=== PATIENT | female | born 2000 | race Caucasian/White ===

== ENCOUNTER 2023-03-01 03:14 | Emergency (ER) | payer BC, MEDICAID, OTHER ==
[~2023-03-01] VITALS: Ht 175.3 cm; Wt 73.0 kg
[~2023-03-01 03:14] MED LIST: CALAMINE LOTION; HYDR-459; HYDROCORTISONE CREAM; PERMETHRIN CREAM
[2023-03-01 03:24] VITALS: BP 122/70; O2SAT 100
[2023-03-01 03:52] LABS: BASOPHILS % 0.6 % (0.0-2.0); EOSINOPHILS % 0.8 % (0.0-5.0); HEMATOCRIT. 35.5 % (36.0-48.0); HEMOGLOBIN. 12.1 g/dL (12.0-16.0); LYMPHOCYTES % 28.6 % (20.0-50.0); MEAN CORPUSCULAR HEMOGLOBIN 30.8 pg (28.0-32.0); MEAN CORPUSCULAR VOLUME 90.4 fL (81.0-99.0); MEAN PLATELET VOLUME 7.2 fl (7.4-10.4); MONOCYTES % 6.2 % (2.0-8.0); NEUTROPHILS % 63.8 % (40.0-76.0); PLATELET 429 x1000/uL (130-400); RED BLOOD CELL COUNT 3.93 mill/uL (4.2-5.4); RED CELL DISTRIBUTION WIDTH 13.9 % (11.6-14.6)
[2023-03-01 04:00] LABS: CHLORIDE 107 mEq/L (98-107)
[2023-03-01 05:47] LABS: CLARITY URINE CLEAR (CLEAR); COLOR URINE YELLOW (YELLOW); KETONES URINE NEGATIVE (NEGATIVE); LEUKOCYTE ESTERASE URINE 1+ (NEGATIVE); NITRITE URINE NEGATIVE (NEGATIVE); OCCULT BLOOD URINE 1+ (NEGATIVE); PROTEIN URINE NEGATIVE (NEGATIVE); SPECIFIC GRAVITY URINE 1.006 (1.005-1.030); UROBILINOGEN URINE 0.2 E.U./dL (0.2-1.0)
[2023-03-01] MEDS ORDERED: AMOX1TAB16 MT (06:08)
[2023-03-01] MEDS ORDERED: IBUP-2029 MT (06:08)
[2023-03-01 06:21] VITALS: PULSE 104; RESP 18; TEMP 97.6
== END 2023-03-01 06:29 | disposition home or self-care (01) ==
LOC: ER 03:43
DX: N12 Tubulo-interstitial nephritis, not specified as acute or chronic (principal)
CPT/HCPCS: 36415; 80053; 81003; 81025; 85025; 99283